=== PATIENT | male | born 1930 | race Caucasian/White ===

== ENCOUNTER 2016-09-16 16:12 | Emergency (ER) | payer MEDICARE, OTHER ==
[~2016-09-16 16:12] MED LIST: AMLODIPINE5 MG PO; ASPIRIN E.C. 8181 MG PO; CLEOCIN HC150 MG/CAP PO; COREG12.5 M1 PO; COREG25 MG; FERROUS SU325 MG/TAB PO; HCTZ/LISINOPRIL1 TAB; LOTENSIN20 M1 PO; LOTENSIN20 MG; NORCO 325 MG-51 TAB PO; PLAVIX 75MG TAB75 MG; PROTONIX TR40 M1 PO; PROTONIX40 MG; REGLAN 5MG T5 MG/TAB PO; SENOKOT-S TAB1 UDTAB PO; ZANTAC 150150 MG
[2016-09-16] MEDS ORDERED: ONE DAILY WITH1 EACH PO (16:34)
[2016-09-16 18:30] VITALS: BP 180/101
== END 2016-09-16 19:00 | disposition short-term general hospital (02) ==
LOC: ED 16:12
DX: I50.1 Left ventricular failure, unspecified (principal); I11.9 Hypertensive heart disease without heart failure; Z87.891 Personal history of nicotine dependence; Z86.73 Personal history of transient ischemic attack (TIA), and cerebral infarction without residual deficits; Z79.82 Long term (current) use of aspirin
CPT/HCPCS: J1940

== ENCOUNTER → 2017-01-08 | Outpatient (CLI) | payer MEDICARE, OTHER ==
[~2017-01-08] MED LIST changes: +ONE DAILY WITH1 EACH PO
== END ==
LOC: RAD 12:00 → VAS 16:23
DX: I42.8 Other cardiomyopathies (principal); I50.22 Chronic systolic (congestive) heart failure; I49.3 Ventricular premature depolarization; R06.00 Dyspnea, unspecified; I35.0 Nonrheumatic aortic (valve) stenosis; I50.1 Left ventricular failure, unspecified; I34.0 Nonrheumatic mitral (valve) insufficiency

== ENCOUNTER 2017-06-26 10:00 | Outpatient (RCR) | payer MEDICARE, OTHER | END 2017-06-26 16:28 | disposition home or self-care (01) | LOC: PT 10:00 | DX: M54.41 Lumbago with sciatica, right side (principal) ==

== ENCOUNTER → 2017-07-09 | Outpatient (CLI) | payer MEDICARE, OTHER ==
[~2017-07-09] VITALS: Ht 188 cm; Wt 91.7 kg
[~2017-07-09] MED LIST changes: +FUROSEMIDE40 MG PO; +METOPROLOL SUCC25 M1 PO
[2017-07-09 15:00] VITALS: BP 147/70
== END ==
LOC: AMSURD 14:49
DX: R42 Dizziness and giddiness (principal); I49.3 Ventricular premature depolarization

== ENCOUNTER → 2017-07-10 | Outpatient (CLI) | payer MEDICARE, OTHER ==
[2017-07-09 15:00] VITALS: BP 147/70
== END ==
LOC: VAS 15:02
DX: I42.9 Cardiomyopathy, unspecified (principal)

== ENCOUNTER 2017-10-30 11:00 | Outpatient (RCR) | payer MEDICARE, OTHER ==
[2017-07-09 15:00] VITALS: BP 147/70
== END 2018-01-01 | disposition home or self-care (01) ==
LOC: PT
DX: M54.5 Low back pain (principal)

== ENCOUNTER 2018-04-11 10:00 | Outpatient (RCR) | payer MEDICARE, OTHER ==
[2017-07-09 15:00] VITALS: BP 147/70
== END 2018-04-11 10:30 | disposition home or self-care (01) ==
LOC: PT 10:00
DX: M43.16 Spondylolisthesis, lumbar region (principal); M48.061 Spinal stenosis, lumbar region without neurogenic claudication; M41.9 Scoliosis, unspecified

== ENCOUNTER 2018-11-04 11:30 | Outpatient (RCR) | payer MEDICARE, OTHER ==
[2017-07-09 15:00] VITALS: BP 147/70
== END 2018-11-04 12:00 | disposition home or self-care (01) ==
LOC: PT 11:30
DX: M54.16 Radiculopathy, lumbar region (principal); M43.16 Spondylolisthesis, lumbar region; M48.061 Spinal stenosis, lumbar region without neurogenic claudication
CPT/HCPCS: G8981-GP; G8982-GP

== ENCOUNTER 2020-04-28 13:55 | Inpatient (IN) | payer MEDICARE, OTHER ==
[~2020-04-28] VITALS: Ht 188 cm; Wt 77.2 kg
[2020-04-28] MEDS ORDERED: DULCOLAX S10 MG/SUPP RC (15:35)
[2020-04-28] MEDS ORDERED: ULTRAM50 M1 PO (15:39)
[2020-04-28] MEDS ORDERED: COZAAR25 M1 PO (15:40)
[2020-04-28] MEDS ORDERED: LASIX20 M1 PO (15:40)
[2020-04-28] MEDS ORDERED: CORDARONE200 MG/TAB PO (15:42)
[2020-04-28] MEDS ORDERED: LOTRISONE CREAM15 GM TP (15:43)
[2020-04-28] MEDS ORDERED: ACETAMINOPHEN500 M5 PO (15:44)
[2020-04-28 17:45] VITALS: BP 144/81
[2020-04-28 19:13] VITALS: BP 144/81
[2020-04-28 21:00] VITALS: BP 144/81
[2020-04-28 21:42] VITALS: BP 99/59
[2020-04-29 05:46] LABS: HEMATOCRIT 29.7 % (42.0-52.0); HEMOGLOBIN 9.7 g/dL (13.5-18.0); MEAN CELL VOLUME 97 fl (78-100); MEAN CORPUSCULAR HEMOGLOBIN 32 pg (27-31); MEAN CORPUSCULAR HGB CONC 33 g/dL (33-37); MEAN PLATELET VOLUME 9.7 fl (7.4-10.4); PLATELET COUNT 226 K/mm3 (130-400); RED BLOOD COUNT 3.07 M/mm3 (4.20-5.60); RED CELL DISTRIBUTION WIDTH 14.8 % (11.5-14.5); WHITE BLOOD COUNT 5.1 K/mm3 (4.8-10.8)
[2020-04-29 06:07] LABS: POTASSIUM 4.4 mmol/L (3.5-5.1)
[2020-04-29 06:08] LABS: CALCIUM 8.5 mg/dL (8.3-10.5)
[2020-04-29 06:11] VITALS: BP 147/84
[2020-04-29 06:58] LABS: LYMPHOCYTE 11 % (20-51); MONOCYTE 8 % (3-10); NEUTROPHILS 78 % (42-75)
[2020-04-29 17:19] VITALS: BP 133/82
[2020-04-30 06:07] VITALS: BP 156/73
[2020-04-30 18:05] VITALS: BP 130/47
[2020-05-01 06:09] VITALS: BP 149/81
[2020-05-01 16:42] VITALS: BP 117/65
[2020-05-01 17:44] LABS: URINE APPEARANCE CLEAR; URINE BILIRUBIN NEGATIVE (NEGATIVE); URINE BLOOD TRACE (NEGATIVE); URINE COLOR YELLOW; URINE GLUCOSE NEGATIVE (NEGATIVE); URINE KETONE NEGATIVE (NEGATIVE); URINE NITRATE NEGATIVE (NEGATIVE); URINE PROTEIN(semi-quant) NEGATIVE (NEGATIVE); URINE UROBILINOGEN NORMAL (NORMAL)
[2020-05-01 17:45] LABS: URINE LEUKOCYTE ESTERASE NEGATIVE (NEGATIVE); URINE WBC 0-1 /hpf (0-3)
[2020-05-02 05:28] VITALS: BP 149/84
[2020-05-02 09:21] LABS: HEMATOCRIT 31.3 % (42.0-52.0); HEMOGLOBIN 10.5 g/dL (13.5-18.0); MEAN CELL VOLUME 95 fl (78-100); MEAN CORPUSCULAR HEMOGLOBIN 32 pg (27-31); MEAN CORPUSCULAR HGB CONC 34 g/dL (33-37); MEAN PLATELET VOLUME 9.6 fl (7.4-10.4); PLATELET COUNT 244 K/mm3 (130-400); RED BLOOD COUNT 3.28 M/mm3 (4.20-5.60); RED CELL DISTRIBUTION WIDTH 14.9 % (11.5-14.5)
[2020-05-02 09:30] LABS: POTASSIUM 4.3 mmol/L (3.5-5.1)
[2020-05-02 09:31] LABS: CALCIUM 8.5 mg/dL (8.3-10.5)
[2020-05-02 17:29] VITALS: BP 114/74
[2020-05-03 06:13] VITALS: BP 123/64
[2020-05-03 11:53] LABS: HEMATOCRIT 32.9 % (42.0-52.0); HEMOGLOBIN 10.8 g/dL (13.5-18.0); MEAN CELL VOLUME 96 fl (78-100); MEAN CORPUSCULAR HEMOGLOBIN 32 pg (27-31); MEAN CORPUSCULAR HGB CONC 33 g/dL (33-37); MEAN PLATELET VOLUME 9.7 fl (7.4-10.4); PLATELET COUNT 312 K/mm3 (130-400); RED BLOOD COUNT 3.42 M/mm3 (4.20-5.60); WHITE BLOOD COUNT 7.2 K/mm3 (4.8-10.8)
[2020-05-03 12:07] LABS: BAND 2 % (0-10); LYMPHOCYTE 7 % (20-51); MONOCYTE 14 % (3-10); NEUTROPHILS 75 % (42-75); POTASSIUM 4.6 mmol/L (3.5-5.1)
[2020-05-03 12:08] LABS: CALCIUM 8.5 mg/dL (8.3-10.5)
[2020-05-03 17:16] VITALS: BP 102/63
[2020-05-04 05:16] VITALS: BP 113/66
[2020-05-04 09:24] LABS: HEMOGLOBIN 10.6 g/dL (13.5-18.0); MEAN CELL VOLUME 96 fl (78-100); MEAN CORPUSCULAR HEMOGLOBIN 32 pg (27-31); MEAN CORPUSCULAR HGB CONC 33 g/dL (33-37); MEAN PLATELET VOLUME 9.6 fl (7.4-10.4); PLATELET COUNT 270 K/mm3 (130-400); RED BLOOD COUNT 3.33 M/mm3 (4.20-5.60); RED CELL DISTRIBUTION WIDTH 15.1 % (11.5-14.5); WHITE BLOOD COUNT 4.8 K/mm3 (4.8-10.8)
[2020-05-04 09:30] LABS: POTASSIUM 3.9 mmol/L (3.5-5.1)
[2020-05-04 09:31] LABS: CALCIUM 8.5 mg/dL (8.3-10.5)
[2020-05-04 09:42] LABS: LYMPHOCYTE 7 % (20-51); MONOCYTE 11 % (3-10); NEUTROPHILS 80 % (42-75); OVALOCYTES 1+; TEAR DROP CELLS 1+
[2020-05-04] MEDS ORDERED: LASIX20 M1 PO (11:17)
[2020-05-04] MEDS ORDERED: TRAMADOL 50 MG TAB PO (11:30)
[2020-05-04 13:03] VITALS: BP 101/57
== END 2020-05-04 13:25 | disposition home or self-care (01) | DRG 948 ==
LOC: MED/SURG 13:55
PROVIDERS: Family Medicine; Nurse Practitioner Primary Care; ADMIT Physician Assistant
DX: R53.81 Other malaise (principal); I47.1 Supraventricular tachycardia; L89.159 Pressure ulcer of sacral region, unspecified stage; I44.7 Left bundle-branch block, unspecified; D63.8 Anemia in other chronic diseases classified elsewhere; I50.9 Heart failure, unspecified; G89.29 Other chronic pain; M54.5 Low back pain; Z79.891 Long term (current) use of opiate analgesic; Z95.0 Presence of cardiac pacemaker; Z86.73 Personal history of transient ischemic attack (TIA), and cerebral infarction without residual deficits; Z87.891 Personal history of nicotine dependence; Z90.5 Acquired absence of kidney; Z85.038 Personal history of other malignant neoplasm of large intestine; Z85.528 Personal history of other malignant neoplasm of kidney; Z88.2 Allergy status to sulfonamides; Z88.6 Allergy status to analgesic agent

== ENCOUNTER → 2020-05-20 | Outpatient (CLI) | payer MEDICARE, OTHER ==
[2020-05-04 13:03] VITALS: BP 101/57
[~2020-05-20] MED LIST changes: +ACETAMINOPHEN500 M5 PO; +CORDARONE200 MG/TAB PO; +COZAAR25 M1 PO; +DULCOLAX S10 MG/SUPP RC; +LASIX20 M1 PO; +LOTRISONE CREAM15 GM TP; +TRAMADOL 50 MG TAB PO; +ULTRAM50 M1 PO
== END ==
LOC: RAD 09:00
DX: K57.30 Diverticulosis of large intestine without perforation or abscess without bleeding (principal); R63.0 Anorexia; Z90.49 Acquired absence of other specified parts of digestive tract; Z90.5 Acquired absence of kidney
CPT/HCPCS: Q9967